=== PATIENT | male | born 1965 | race Caucasian/White ===

== ENCOUNTER → 2024-03-18 11:17 | Outpatient (REF) | payer BC, SELFPAY | LOC: HWRAD 11:17 | PROVIDERS: ATTENDING PHYSICIAN Internal Medicine | DX: R05.3 Chronic cough (principal); M25.552 Pain in left hip | CPT/HCPCS: 71046; 73502 ==

== ENCOUNTER → 2024-03-24 06:18 | Day surgery (SDC) | payer BC, SELFPAY | LOC: GI 06:18 | PROVIDERS: ATTENDING PHYSICIAN Specialist | DX: Z12.11 Encounter for screening for malignant neoplasm of colon (principal); K57.30 Diverticulosis of large intestine without perforation or abscess without bleeding; Z86.0101 Personal history of adenomatous and serrated colon polyps | CPT/HCPCS: G0105 ==

== ENCOUNTER 2024-03-31 09:14 | Emergency (ER) | payer BC, SELFPAY ==
[2024-03-31 09:23] VITALS: BP 130/95
--- NOTE | 2024-03-31 10:10 | ED.GENMED ---
History of Present Illness
General
Chief Complaint: Throat Problem
Time Seen by Provider: 03/31/24 09:38
History of Present Illness
History of Present Illness:
59-year-old male without significant past medical history presenting for concern of foreign body. Patient reports a few days ago he was eating popcorn and felt like a kernel was dislodged in his upper throat. Believes that it has since moved down
to his lower throat. He feels that it is still there, causing pain. Denies issues swallowing his secretions or eating or drinking. Denies difficulty breathing. Denies additional acute medical complaints
Past History
Past History
ED Past Medical History: GERD and Other (Chronic back issues)
ED Past Surgical History: Orthopedic (lumbar surgery)
Social History
Tobacco: Non-smoker
Alcohol: Occasional
Personal:
Living: with family
Employment: Employed
Phy Exam
Physical Exam
Physical Exam:
General: Well-appearing, no clinical signs of dehydration, nontoxic and in no acute distress
HEENT: protecting airway, no oropharyngeal swelling. Small ulceration at the bottom of the uvula. No visualization of foreign body.
Neck: appears supple
CV: Normal heart rate
Resp: No accessory muscle use, no increased work of breathing, lungs clear to auscultation bilaterally
Abd: No distention
Extremities: No deformities, no swelling
Neuro: alert, no focal neurologic deficit
: deferred
Rectal: deferred
Psych: Normal affect
Skin: Intact
Course
Vital Signs
Initial and Last Documented VS:
Initial Vital Signs
Temp Pulse Resp BP Pulse Ox
98.3 F 79 18 130/95 95
03/31/24 09:23 03/31/24 09:23 03/31/24 09:23 03/31/24 09:23 03/31/24 09:23
Last Documented Vital Signs
Temp Pulse Resp BP Pulse Ox
98.3 F 79 18 130/95 95
03/31/24 09:23 03/31/24 09:23 03/31/24 09:23 03/31/24 09:23 03/31/24 09:23
MDM/Problems Addressed
MDM/Problems Addressed:
59-year-old male without significant past medical history presenting for concern of foreign body in his throat after eating popcorn. Vital signs normal
Patient well-appearing on my assessment, no respiratory distress. He is handling secretions out difficulty, no compromised airway. No obvious visualization of a foreign body she does have ulceration at the bottom of his uvula which being his
symptoms, possible foreign body sensation. However, cannot visualize lower pharynx. No indication for emergent endoscopy. Feel stable for discharge, however did discuss with ear nose and throat on-call, who will see patient in the office for an
NPL. Patient agreeable to plan. He will go directly to the office. Return precautions discussed and patient verbalized understanding
*Critical Care Note
Total Time (30-74mins, 75-104mins- exclusive of procedures): Not Applicable
ED Attending Note
-
Portions of this chart may have been created with voice recognition software.� Occasional wrong word or��sound alike� substitutions may have occurred due to the inherent limitations of voice recognition software.
Discharge Plan
Departure
Patient Disposition: Home (Routine Discharge)
Date of Disposition: 03/31/24
Time of Disposition: 10:07
Patient with high blood pressure during this ER visit?: No
Condition: Good
Discharge Problem:
Globus sensation
Instructions: Foreign Body, Swallowed, Adult
Prescriptions:
No Action
fluoxetine 10 MG capsule
10 mg PO DAILY
Co Q-10
1 tab PO DAILY
Niacin
1 tab PO DAILY
ondansetron 4 MG tablet,disintegrating
4 mg PO TIDPRN PRN (Reason: NAUSEA) Qty: 6 1RF
Referrals:
Guy Cooley MD [Family Provider] -
Korey Miller MD [Active] -
Activity Restrictions/Additional Instructions:
You were seen in the emergency department for concern of foreign body in your throat
You are being referred to the ear nose and throat doctor, Dr. Miller.
Office location: [address] [place] [address] [place] [address]
[phone]
Please follow-up closely with your primary care physician.
Return to the emergency department for any worsening of your symptoms including difficulty handling food or water or difficulty swallowin, or any development of chest pain, difficulty breathing, abdominal pain with persistent vomiting and inability
to tolerate food or liquid by mouth (concern for dehydration), weakness, headache or confusion, fever greater than 100.4, or any additional symptoms that are concerning to you.
Thank you for choosing [facility].
Interventions
Interventions:
*Risk Screen - Suicide Last Done: 03/31/24 09:23
*General Assessment Last Done: 03/31/24 09:23
*Neglect/Abuse Screening Last Done: 03/31/24 09:23
*ED COVID-19 Vaccine History Last Done: 03/31/24 09:51
ED-EENT Assessment Last Done: 03/31/24 09:51
ED- Pulmonary Assessment Last Done: 03/31/24 09:51
Discharge Date and Time
Print Language: THAI
== END 2024-03-31 10:19 | disposition home or self-care (01) ==
LOC: EMR 09:14
PROVIDERS: EMERGENCY PHYSICIAN Student in an Organized Health Care Education/Training Program; FAMILY PHYSICIAN Internal Medicine
DX: R09.A2 Foreign body sensation, throat (principal); K21.9 Gastro-esophageal reflux disease without esophagitis
CPT/HCPCS: 99282

== ENCOUNTER → 2024-04-12 08:23 | Outpatient (REF) | payer BC, SELFPAY | LOC: HWRAD 08:23 | PROVIDERS: ATTENDING PHYSICIAN Internal Medicine | DX: M25.552 Pain in left hip (principal); Z82.62 Family history of osteoporosis; R05.3 Chronic cough | CPT/HCPCS: 77080 ==

== ENCOUNTER → 2024-07-02 13:37 | Outpatient (REF) | payer BC, SELFPAY | LOC: DHSLP 13:37 | PROVIDERS: ATTENDING PHYSICIAN Internal Medicine Critical Care Medicine; FAMILY PHYSICIAN Internal Medicine | DX: G47.33 Obstructive sleep apnea (adult) (pediatric) (principal) | CPT/HCPCS: 95800 ==

== ENCOUNTER 2024-12-14 06:26 | Day surgery (SDC) | payer BC, SELFPAY | END 2024-12-14 12:49 | disposition home or self-care (01) | LOC: GI 06:26 | PROVIDERS: ATTENDING PHYSICIAN Specialist | DX: R12 Heartburn (principal); K31.7 Polyp of stomach and duodenum | CPT/HCPCS: 43239; 88305 ==